=== PATIENT | male | born 1985 | race Caucasian/White ===

== ENCOUNTER 2020-02-25 08:08 | Emergency (ER) | payer OTHER, SELFPAY ==
--- NOTE | ~2020-02-25 | CT_ITS ---
EXAMINATION: CT brain wo con INDICATION: Left arm and leg numbness and tingling COMPARISON: None TECHNIQUE: Standard unenhanced head CT. The dose-length product (DLP) was 605.33 mGy-cm. The mA was a djusted according to patient size. Iterative reconstruction technique was employed. FINDINGS: There is no intracranial hemorrhage, acute infarction, or abnormal mass lesion. The ventric les are normal. There is no abnormal mass effect or midline shift. The whelan-white matter differentiat ion is normal. The basal cisterns are patent. The orbits are normal. The paranasal sinuses, mastoids and calvarium are normal. IMPRESSION: 1. No acute intracranial abnormality. Reviewed, dictated and finalized at location A.
[2020-02-25 08:15] VITALS: BP 198/116; PULSE 133; RESP 22; TEMP 36.8; O2SAT 97
--- NOTE | 2020-02-25 08:18 | ECG_ITS ---
Measurements Intervals [place] Rate: 133 P: 47 IA: 132 QRS: 88 QRSD: 101 T: 13 QT: 293 QTc: 436 Interpretive Statements SINUS TACHYCARDIA DELAYED PRECORDIAL R/S TRANSITION BASELINE WANDER- II, III, AVR, AVF ABNORMAL ECG Electronically Signed On 02-25-2020 10:13:14 CDT by Roberto Guardado D.O.
[2020-02-25] MEDS: SODIUM CHLORIDE 0.9% IV 1,000 ML 999 ML IV CONT (08:24)
--- NOTE | 2020-02-25 08:27 | ED.NEUROSD ---
HPI - Neuro Symptoms/Deficit General Chief Complaint: Neuro Symptoms/Deficit Stated Complaint: feeling weird the last 2 days Time Seen by Provider: 02/25/20 08:10 History of Present Illness HPI Narrative: Patient presents with his for left-sided numbness for 4 days. He said he woke up with it. He is not sure whether it was last Tuesday or . He has no weakness. He works as a web marketing analyst. He has a history of hypertension. He drinks a sixpack of beer nightly. He has no pain or recent illness. He has never had tremors or seizures from alcohol withdrawal. Does not smoke cigarette. His surgeries include circumcision and wisdom tooth extraction. Onset (ago): day(s) Timing confirmed by: spouse Location: left arm and left leg History of same: No Severity: mild Quality: numb Relieving factors: none Exacerbating factors: none Context: gradual onset On Anticoagulants: No Associated symptoms: denies other symptoms Treatments Prior to Arrival: none Related Data Home Medications Medication Instructions Recorded Confirmed amlodipine 02/25/20 lisinopril 02/25/20 Allergies Allergy/AdvReac Type Severity Reaction Status Date / Time No Known Allergies Allergy Verified 02/25/20 08:32 Review of Systems Review of Systems: Narrative: CONSTITUTIONAL: Denies fever, chills, or sweats. EYES: Denies visual changes, redness, or discharge. ENT: Denies rhinorrhea, congestion, sore throat, or otalgia. CARDIOVASCULAR: Denies chest pain, palpitations, or edema. RESPIRATORY: Denies cough or dyspnea. GASTROINTESTINAL: Denies abdominal pain, nausea, vomiting, or diarrhea. GENITOURINARY: Denies dysuria or hematuria. SKIN: Denies rash or itching. MUSCULOSKELETAL: Denies back pain, joint pain, or myalgia. NEUROLOGIC: Denies headache, or weakness , but does have numbness on the left side . FOR[facility]LY [facility] Past Medical History Medical History Excessive drinking alcohol Hypertension Surgical History Surgical History (Updated 02/25/20 @ 08:30 by Rochelle Herrera MD) History of circumcision History of wisdom tooth extraction Social History Social History (Updated 02/25/20 @ 08:31 by Rochelle Herrera MD) Smoking status: Never smoker Alcohol intake: current Alcohol use details: Sixpack of beer nightly Exam Narrative: Exam Narrative: GENERAL: Well-appearing, well-nourished, and in no acute distress. Long red hameed. HEAD: Normocephalic, atraumatic. EYES: PERRLA and EOMI. ENT: Nares clear, no rhinorrhea or epistaxis. Mucous membranes moist. NECK: Supple. CHEST: Clear to auscultation. No respiratory distress. Tachycardic HEART: Regular rate and rhythm. No murmur heard. Normal peripheral pulses. ABDOMEN: Soft, nontender, nondistended, normal active bowel sounds. EXTREMITIES: Normal range of motion. No edema. SKIN: Warm, dry, no rash. NEURO: No focal deficits. Alert and oriented x3. PSYCH: Normal mood and affect. Course Reevaluation(s) Reevaluation #1: Went in the room to discuss the patient's results with him and his . He expressed fear that the symptoms might be blood clots going to his head due to COVID. At his work they have a full bar and video games. He is the oldest worker there. Is too easy to drink more than less. He is to follow-up with Dr. Ribeiro for possible MRI of his brain to rule out MS. I told him I was not sure whether his high heart rate and high blood pressure were due to alcohol withdrawal or anxiety. I advised him to limit his alcoholic beverages to 2 a day. Date: 02/25/20 Time: 10:03 Vital Signs Vital signs: Vital Signs Temperature 98.2 F 02/25/20 08:15 Pulse Rate 133 H 02/25/20 08:15 Respiratory Rate 22 H 02/25/20 08:15 Blood Pressure 198/116 H 02/25/20 08:15 Pulse Oximetry 97 02/25/20 08:15 Temperature 98.2 F 02/25/20 08:15 Pulse Rate 133 H 02/25/20 08:15 Respiratory Rate 22 H 02/25/20 08:15 Blood Pressure
[2020-02-25 08:35] LABS: Basophils Absolute Auto 0.2 K/mm3 (0.0-0.1); Basophils Percent Auto 1.6 % (0.2-1.2); Eosinophils Absolute Auto 1.2 K/mm3 (0-0.3); Hematocrit 50.8 % (42.0-52.0); Hemoglobin 17.5 g/dL (14.0-18.0); Immature Granulocyte Absolute 0.04 K/mm3 (0.00-0.031); Immature Granulocyte Percent A 0.4 % (0-0.5); Lymphocytes Absolute Auto 2.28 K/mm3 (0.9-3.2); Lymphocytes Percent Auto 22.7 % (18.3-44.2); Mean Corpuscular HGB Conc 34.4 g/dl (32-36); Mean Corpuscular Hemoglobin 31.6 pg (26-34); Mean Corpuscular Volume 91.9 fl (80-100); Mean Platelet Volume 8.7 fl (7.4-10.4); Monocytes Absolute Auto 0.9 K/mm3 (0.1-0.6); Monocytes Percent Auto 8.9 % (2.6-8.5); Neutrophils Absolute Auto 5.5 K/mm3 (1.3-6.7); Neutrophils Percent Auto 54.4 % (45.5-73.1); Platelet Count Result 314 k/mm3 (150-375); Red Blood Count 5.53 M/mm3 (4.6-6.20); Red Cell Distribution Width 12.2 % (11.5-14.5); White Blood Count 10.1 K/mm3 (4.5-10.0)
[2020-02-25 08:47] LABS: Partial Thromboplastin Time 25.9 SECONDS (22.3-36.8); Prothrombin Time 12.4 Seconds (11.1-14.7)
[2020-02-25 08:50] LABS: Alanine Aminotransferase 30 U/L (4-50); Albumin Level 5.2 g/dL (3.5-5.1); Alkaline Phosphatase 129 U/L (38-126); Anion Gap 12 mmol/L (8-16); Aspartate Amino Transferase 32 U/L (17-59); Bilirubin,Total 0.7 mg/dL (0.2-1.3); Blood Urea Nitrogen 9 mg/dL (9-20); Calcium 9.8 mg/dL (8.4-10.2); Carbon Dioxide 24 mmol/L (22-30); Chloride 102 mmol/L (98-107); Estimated Glomerular Filt Rate > 60; Ethanol < 10 mg/dL (<10); Glucose 126 mg/dL (75-110); Potassium 3.7 mmol/L (3.4-5.0); Sodium 138 mmol/L (137-145)
[2020-02-25 09:53] LABS: Add Urine Microscopic? NO; Appearance Urine Clear (Clear); Bilirubin Urine Negative (Negative); Blood Urine Negative (Negative); Color Urine Straw (Yellow); Glucose Urine UA Negative (Negative); Ketones Urine Negative (Negative); Leukocyte Esterase Ur Negative LEU/UL (Negative); Mucus Urine Rare /lpf; Nitrate Urine Negative (Negative); Protein Urine Negative (Negative); Urobilinogen Urine Negative mg/dL (<2.0); WBC Urine 0-3 /hpf
[2020-02-25 10:06] VITALS: BP 126/82; PULSE 102; RESP 18; O2SAT 96
== END 2020-02-25 10:07 | disposition home or self-care (01) ==
PROVIDERS: Emergency Provider Emergency Medicine; PCP Family Medicine
DX: R20.2 Paresthesia of skin (principal); R00.0 Tachycardia, unspecified; I10 Essential (primary) hypertension
CPT/HCPCS: 36415; 70450; 80053; 80307; 81003; 85025; 85610; 85730; 93005; 96361; 96374; 99284; J2060; J7030

== ENCOUNTER → 2020-04-28 08:42 | Outpatient (CLI) | payer OTHER, SELFPAY ==
--- NOTE | ~2020-04-28 | MR_ITS ---
EXAMINATION: MR cervical spine wo/w con DATE: 04/28/2020 10:36 INDICATION: Paresthesias of skin TECHNIQUE: Magnetic resonance imaging (MRI) of the cervical spine was performed without and with 17 m L Multihance intravenous contrast. Sequences included sagittal T2-weighted FSE, sagittal T2-weighted FS FSE, sagittal T1-weighted FSE, axial T2-weighted FSE, and axial T1-weighted SE. Postcontrast seque nces included sagittal T1-weighted FS FSE, and axial T1-weighted FS SE. COMPARISON: None FINDINGS: Straightening of the normal cervical lordosis. No spondylolisthesis or facet subluxation. Vertebral body heights are normal. Mild disc height loss at C5-C6 and moderate disc height loss at C6-C7, bladd er with mild fibrovascular degenerative endplate changes. Marrow signal is otherwise normal. Cord sig nal intensity is normal. No abnormally enhancing lesions identified. The following disc levels are sp ecifically discussed: C2-C3: The disc does not extend beyond the endplate margin. There is no uncovertebral joint osteoarth ritis. There is mild bilateral facet joint osteoarthritis. There is no neural foraminal stenosis. The re is no central canal stenosis. C3-C4: The disc does not extend beyond the endplate margin. There is no uncovertebral joint osteoarth ritis. There is normal bilateral facet joint osteoarthritis. There is no neural foraminal stenosis. T here is no central canal stenosis. C4-C5: Disc is minimally bulging. There is mild bilateral uncovertebral joint osteoarthritis. There i s mild bilateral facet joint osteoarthritis. There is mild right neural foraminal stenosis. There is no central canal stenosis. C5-C6: Disc is bulging. There is mild bilateral uncovertebral joint osteoarthritis. There is mild lef t and minimal right facet joint osteoarthritis. There is mild bilateral neural foraminal stenosis. Th ere is mild central canal stenosis with flattening of the ventral surface of the cord. C6-C7: Disc is bulging. There is moderate right and severe left uncovertebral joint osteoarthritis. T here is mild left and minimal right facet joint osteoarthritis. There is mild right and moderate left neural foraminal stenosis. There is mild central canal stenosis with flattening of the ventral surfa ce of the cord. C7-T1: The disc does not extend beyond the endplate margin. There is no uncovertebral joint osteoarth ritis. There is mild bilateral facet joint osteoarthritis. There is no neural foraminal stenosis. The re is no central canal stenosis. IMPRESSION: 1. Cervical spondylosis, mild to moderate at C5-C6 and C6-C7 and otherwise minimal. Reviewed, dictated and finalized at location A. IMPRESSION: 1. Cervical spondylosis, mild to moderate at C5-C6 and C6-C7 and otherwise mini mal.
--- NOTE | ~2020-04-28 | MR_ITS ---
EXAMINATION: MR thoracic spine wo/w con DATE: 04/28/2020 10:27 INDICATION: Paresthesias of skin TECHNIQUE: Magnetic resonance imaging (MRI) of the thoracic spine was performed . without and with 17 mL Multihance intravenous contrast. Sagittal localizer T1-weighted FSE of the cervicothoracic spine was obtained. Sequences included sagittal T2-weighted FSE, sagittal T2-weighted FS FSE, sagittal T1-w eighted FSE and axial T1-weighted SE. Postcontrast sequences included axial T2-weighted FSE, sagittal T1-weighted FS FSE, and axial T1-weighted FS SE. COMPARISON: None FINDINGS: Mild thoracic levoscoliosis. Sagittal alignment is normal.Chronic mild anterior wedging at T9 with <2 0% anterior vertebral body height loss. There are a few small Schmorl's nodes involving multiple endp lates from the inferior endplate of T7 through the inferior endplate of T11. Normal marrow signal.Mil d disc height loss and mild disc desiccation from T4-T5 through T11-T12. There is normal spinal cord signal. The conus terminates at T12-L1. No abnormally enhancing lesions identified. Minimal to mild t horacic facet osteoarthritis with upper thoracic predominance and with mild neural foraminal stenosis on the left at T1-T2. Small right paracentral disc protrusion at T3-T4. Tiny right paracentral disc protrusions at T5-T6 and T8-T9 and left paracentral disc protrusions at T6-T7 and T7-T8 each with onl y minimal central canal stenosis. Mild diffuse disc bulge at T9-T10 with no significant central canal stenosis. Mild diffuse disc bulge at T10-T11. There is a superimposed right subarticular zone annula r fissure with small disc extrusion with disc material extending a couple millimeter cephalad and cau greg to the level of the endplates. There is also mild hypertrophy of the right ligamentum flavum. Tog ether this results in mild central canal stenosis. Small right paracentral disc protrusion at T11-T12 with only minimal central canal stenosis. IMPRESSION: 1. Mild thoracic spondylosis. No abnormally enhancing lesions identified. Reviewed, dictated and finalized at location A.
--- NOTE | ~2020-04-28 | MR_ITS ---
EXAMINATION: MR brain/brain stem wo/w con DATE: 04/28/2020 10:38 INDICATION: Paresthesias of skin. TECHNIQUE: Magnetic resonance imaging (MRI) of the brain and brainstem was performed without and with 17 mL MultiHance intravenous contrast. Sequences included sagittal and axial T1-weighted FSE, axial diffusion-weighted FS EPI, axial T2*-weighted GRE, axial T2-weighted FLAIR Propeller, and axial T2-we ighted Propeller. Postcontrast sequences included axial and coronal T1-weighted FSE. Apparent diffusi on coefficient (ADC) maps were created. COMPARISON: Head CT 02/25/2020 FINDINGS: There is no intracranial hemorrhage, acute infarction, or abnormal intracranial mass lesion . The ventricles are normal in size. There is mild mucosal thickening in the paranasal sinuses. The m astoid air cells are normal. The orbits are normal. IMPRESSION: 1. Normal brain. Reviewed, dictated and finalized at location A. IMPRESSION: 1. Normal brain.
[2020-04-28 09:14] LABS: Estimated Glomerular Filt Rate > 60
== END ==
PROVIDERS: Visit Provider Psychiatry & Neurology Neurology
DX: R20.2 Paresthesia of skin (principal); M47.894 Other spondylosis, thoracic region; M47.892 Other spondylosis, cervical region
CPT/HCPCS: 70553; 72156; 72157; A9577

== ENCOUNTER 2020-08-13 12:31 | Outpatient (CLI) | payer OTHER, SELFPAY ==
--- NOTE | 2020-08-13 15:00 | NEURO_ITS ---
Impression: # Complains of left upper extremity pain. # No Carpal Tunnel Syndrome. # No ulnar neuropathy. # Normal needle/EMG exam. # Clinical correlation recommended. Nerve Conduction Studies Anti Sensory Summary Table Stim Site NR Peak (ms) P-T Amp (?V) Site1 Site2 Delta-P (ms) Dist (cm) Rock (m/s) Left Median Anti Sensory (2-3nd Digit) Wrist 2.5 88.5 Wrist 2-3nd Digit 2.5 14.0 56 Wrist 2.5 79.3 Wrist 2-3nd Digit 2.5 14.0 56 Right Median Anti Sensory (2-3nd Digit) Wrist 2.6 62.3 Wrist 2-3nd Digit 2.6 14.0 54 Wrist 2.6 62.1 Wrist 2-3nd Digit 2.6 14.0 54 Left Radial Anti Sensory (Base 1st Digit) Wrist 2.0 42.5 Wrist Base 1st Digit 2.0 0.0 Right Radial Anti Sensory (Base 1st Digit) Wrist 2.2 19.1 Wrist Base 1st Digit 2.2 0.0 Left Ulnar Anti Sensory (5th Digit) Wrist 2.4 66.9 Wrist 5th Digit 2.4 14.0 58 Right Ulnar Anti Sensory (5th Digit) Wrist 2.1 77.2 Wrist 5th Digit 2.1 14.0 67 Motor Summary Table Stim Site NR Onset (ms) O-P Amp (mV) Site1 Site2 Delta-0 (ms) Dist (cm) Rock (m/s) Left Median Motor (Abd Poll Brev) Wrist 2.4 6.8 Elbow Wrist 4.8 28.0 58 Elbow 7.2 5.1 Right Median Motor (Abd Poll Brev) Wrist 3.0 5.2 Elbow Wrist 4.8 28.0 58 Elbow 7.8 3.9 Left Ulnar Motor (Abd Dig Minimi) Wrist 2.4 6.2 A Elbow Wrist 5.1 30.0 59 A Elbow 7.5 4.8 Right Ulnar Motor (Abd Dig Minimi) Wrist 3.0 4.6 A Elbow Wrist 4.9 28.0 57 A Elbow 7.9 3.9 F Wave Studies NR F-Lat (ms) L-R F-Lat (ms) Left Median (Mrkrs) (Abd Poll Brev) 29.16 0.72 Right Median (Mrkrs) (Abd Poll Brev) 28.44 0.72 Left Ulnar (Mrkrs) (Abd Dig Min) 27.24 0.33 Right Ulnar (Mrkrs) (Abd Dig Min) 27.58 0.33 EMG Side Muscle Nerve Root Ins Act Fibs Amp Dur Recrt Comment Right 1stDorInt Ulnar C8-T1 Nml Nml Nml Nml Nml Right Ext Indicis Radial (Post Int) C7-8 Nml Nml Nml Nml Nml Right Ext Digitorum Radial (Post Int) C7-8 Nml Nml Nml Nml Nml Right BrachioRad Radial C5-6 Nml Nml Nml Nml Nml Right PronatorTeres Median C6-7 Nml Nml Nml Nml Nml Right Abd Poll Brev Median C8-T1 Nml Nml Nml Nml Nml Left 1stDorInt Ulnar C8-T1 Nml Nml Nml Nml Nml Left Ext Indicis Radial (Post Int) C7-8 Nml Nml Nml Nml Nml Left Ext Digitorum Radial (Post Int) C7-8 Nml Nml Nml Nml Nml Left BrachioRad Radial C5-6 Nml Nml Nml Nml Nml Left PronatorTeres Median C6-7 Nml Nml Nml Nml Nml Left Abd Poll Brev Median C8-T1 Nml Nml Nml Nml Nml Right Anconeus Radial C7-8 Nml Nml Nml Nml Nml Right Brachialis Musculocut C5-6 Nml Nml Nml Nml Nml Left Anconeus Radial C7-8 Nml Nml Nml Nml Nml Left Brachialis Musculocut C5-6 Nml Nml Nml Nml Nml MTDD
== END 2020-08-13 12:32 | disposition home or self-care (01) ==
PROVIDERS: Visit Provider Psychiatry & Neurology Neurology
DX: R20.2 Paresthesia of skin (principal)
CPT/HCPCS: 95886; 95911